=== PATIENT | male | born 1965 | race Caucasian/White ===

== ENCOUNTER 2020-11-07 18:19 | Emergency (ER) | payer MEDICAID ==
--- NOTE | 2020-11-07 19:22 | CR ---
INDICATION: Fall on ice four days prior. Painful left ribs lower anterolateral. LEFT RIBS WITHOUT CHEST: Four views of the left ribs were obtained without chest x-ray. A definite active infiltrate, effusion, contusion or pneumothorax was not visualized. No displaced fracture site or other definite bony abnormality was identified. MTDD
[2020-11-07] MEDS: traMADol 50 MG Tab PO ONE (19:51)
[2020-11-07] MEDS: Acetaminophen 500 MG Tab PO ONE (19:51)
--- NOTE | 2020-11-07 19:56 | EDM.PDOC ---
ED HPI GENERAL MEDICAL PROBLEM - General Chief Complaint: Upper Extremity Injury/Pain Stated Complaint: Left rib pain Time Seen by Provider: 11/07/20 19:30 Source of Information: Reports: Patient History Limitations: Reports: No Limitations - History of Present Illness INITIAL COMMENTS - FREE TEXT/NARRATIVE: Patient presented to the ED because of left rib pain. 4 days ago he was going upstairs, missed a step, fell and landed his left rib on the railing. He c/o 7/10 pain that is worse with movements. L lateral rib Pain Score (Numeric/FACES): 5 - Related Data Allergies Allergy/AdvReac Type Severity Reaction Status Date / Time No Known Allergies Allergy Verified 11/07/20 19:35 Home Meds: Home Meds Cyclobenzaprine [Flexeril] 10 mg PO TID PRN #30 tab 11/07/20 [Rx] Ibuprofen 800 mg PO TID PRN #30 tablet 11/07/20 [Rx] Review of Systems - Review of Systems Review Of Systems: See Below Constitutional: Reports: No Symptoms Ears: Reports: No Symptoms Nose: Reports: No Symptoms Mouth/Throat: Reports: No Symptoms Respiratory: Reports: Pleuritic Chest Pain Cardiovascular: Reports: No Symptoms GI/Abdominal: Reports: No Symptoms Genitourinary: Reports: No Symptoms Musculoskeletal: Reports: No Symptoms Skin: Reports: No Symptoms Neurological: Reports: No Symptoms Psychiatric: Reports: No Symptoms ED EXAM, GENERAL - Physical Exam Exam: See Below Exam Limited By: No Limitations General Appearance: Alert, No Apparent Distress Eye Exam: Bilateral Eye: PERRL Ears: Normal External Exam, Normal Canal, Hearing Grossly Normal Nose: Normal Inspection, Normal Mucosa, No Blood Throat/Mouth: Normal Inspection, Normal Lips, Normal Teeth Head: Atraumatic, Normocephalic Neck: Normal Inspection, Supple, Non-Tender, Full Range of Motion Respiratory/Chest: No Respiratory Distress, Lungs Clear, Normal Breath Sounds, N o Accessory Muscle Use, Other (left rib tenderness) Cardiovascular: Normal Peripheral Pulses, Regular Rate, Rhythm, No Edema, No Gallop, No JVD, No Murmur, No Rub GI/Abdominal: Normal Bowel Sounds, Soft, Non-Tender, No Organomegaly, No Distention, No Abnormal Bruit Back Exam: Normal Inspection, Full Range of Motion Extremities: Normal Inspection, Normal Range of Motion, Non-Tender, No Pedal Edema, Normal Capillary Refill Neurological: Alert, Oriented, CN II-XII Intact, Normal Cognition, Normal Reflexes Psychiatric: Normal Affect Skin Exam: Warm Course - Vital Signs Text/Narrative:: Labs/Rib Xray result was discussed with patient Tramadol 100 mg po x1 Tylenol 1000 mg po x1 - Orders/Labs/Meds Orders: Active Orders 24 hr Category Date Time Status UA W/MICROSCOPIC [URIN] Routine Lab 11/07/20 19:40 Received Labs: Laboratory Tests 11/07/20 11/07/20 Range/Units 19:05 19:05 WBC 8.1 (3.2-10.1) x10-3/uL RBC 4.41 (3.90-5.90) x10(6)uL Hgb 14.5 (12.9-17.7) g/dL Hct 43.0 (38.3-50.1) % MCV 97.4 (80.8-98.7) fL MCH 32.9 (27.0-33.3) pg MCHC 33.8 (28.7-35.3) g/dL RDW 13.2 (12.4-15.0) % Plt Count 318 (117-477) x10(3)uL MPV 7.8 (6.7-11.0) fL Neut % (Auto) 85.6 H (40.3-71.8) % Lymph % (Auto) 8.6 L (15.8-45.3) % [place] % (Auto) 5.3 L (5.5-15.2) % Eos % (Auto) 0.1 (0.1-6.8) % Baso % (Auto) 0.4 (0.3-3.8) % Neut # (Auto) 7.0 H (1.7-6.9) x10-3/uL Lymph # (Auto) 0.7 (0.5-4.5) x10-3/uL [place] # (Auto) 0.4 (0.0-1.2) x10-3/uL Eos # (Auto) 0.0 (0.0-0.6) x10-3/uL Baso # (Auto) 0.0 (0.0-0.3) x10-3/uL Sodium 135 (135-145) mmol/L Potassium 3.9 (3.5-5.3) mmol/L Chloride 97 L (100-110) mmol/L Carbon Dioxide 28 (21-32) mmol/L BUN 12 (7-18) mg/dL Creatinine 0.9 (0.70-1.30) mg/dL Est Cr Clr Drug Dosing TNP Estimated GFR (MDRD) > 60 (>60) BUN/Creatinine Ratio 13.3 (9-20) Glucose 107 (80-116) mg/dL Calcium 8.6 (8.6-10.2) mg/dL Total Bilirubin 0.8 (0.1-1.3) mg/dL AST 33 H (5-25) IU/L ALT 25 (12-36) U/L Alkaline Phosphatase 101 (56-112) IU/L Total Protein 8.1 H (6.0-8.0) g/dL Albumin 4.0 (3.5-5.2) g/dL Globulin 4.1 g/dL Albumin/Globulin Ratio 1.0 Meds: Medications Discontinued Medications Generic Name Dose Route Start Last Admin Trade Name Freq PRN Reason Stop Dose Admin Acetaminophen 1,000 mg 11/07/20 19:47 11/07/20 19:51 Tylenol Extra Strength PO 11/07/20 19:48 1,000 mg ONETIME ONE Administration Tramadol HCl 100 mg 11/07/20 19:46 11/07/20 19:51 Ultram PO 11/07/20 19:47 100 mg ONETIME ONE Administration Departure - Departure Time of Disposition: 18:55 Disposition: Home, Self-Care 01 Condition: Good Clinical Impression: Fall, Contusion of rib on left side - Discharge Information Prescriptions: Cyclobenzaprine [Flexeril] 10 mg PO TID PRN #30 tab PRN Reason: Spasms Ibuprofen 800 mg PO TID PRN #30 tablet PRN Reason: Pain Instructions: Fall Prevention in the Home, Adult, [id number], Rib Contusion Referrals: PCP,None [Primary Care Provider] - Forms: ED Department Discharge Additional Instructions: Please read discharge instructions on rib contusion apply heat take all the following medications at the same time follow up as needed - My Orders Last 24 Hours: My Active Orders 11/07/20 19:40 UA W/MICROSCOPIC [URIN] Routine - Assessment/Plan Last 24 Hours: My Active Orders 11/07/20 19:40 UA W/MICROSCOPIC [URIN] Routine
== END 2020-11-07 20:10 | disposition home or self-care (01) ==
LOC: FB.ED 18:19
DX: S20.212A Contusion of left front wall of thorax, initial encounter (principal); W10.9XXA Fall (on) (from) unspecified stairs and steps, initial encounter
CPT/HCPCS: 36415; 71101-LT; 80053; 81001; 85025; 99283; 99283-25; A9270-GY

== ENCOUNTER 2021-07-09 08:23 | Emergency (ER) | payer MEDICAID ==
[2021-07-09] MEDS ORDERED: Acetaminophen/HYDROcodone 325-10 MG Tab ONE (08:38)
[2021-07-09] MEDS ORDERED: Ketorolac 30 MG/ML SDV ONE (08:38)
[2021-07-09] MEDS ORDERED: Ketorolac 30 MG/ML SDV IM STA (08:41)
[2021-07-09] MEDS ORDERED: Acetaminophen/HYDROcodone 325-10 MG Tab PO ONE (08:41)
--- NOTE | 2021-07-09 08:47 | EDM.PDOC ---
ED HPI GENERAL MEDICAL PROBLEM - General Stated Complaint: TOOTHACHE Time Seen by Provider: 07/09/21 08:30 Source of Information: Reports: Patient History Limitations: Reports: No Limitations - History of Present Illness INITIAL COMMENTS - FREE TEXT/NARRATIVE: Patient presented to the ED because of toothache which started 3 days ago and is now getting worse. The right jaw looks infected: its swollen and tender.He took OTC ibuprofen without significant relief - Related Data Allergies Allergy/AdvReac Type Severity Reaction Status Date / Time No Known Allergies Allergy Verified 11/07/20 19:35 Home Meds: Home Meds Cyclobenzaprine [Flexeril] 10 mg PO TID PRN #30 tab 11/07/20 [Rx] Ibuprofen 800 mg PO TID PRN #30 tablet 11/07/20 [Rx] Amoxicillin/Potassium Clav [Augmentin 875-125 Tablet] 1 each PO BID #20 tablet 07/09/21 [Rx] Ibuprofen 800 mg PO Q8H PRN #30 tablet 07/09/21 [Rx] Past Medical History Musculoskeletal History: Reports: Fracture Other Musculoskeletal History: hx fx R femur, R wrist, toes, skull fx, Neurological History: Reports: Brain Injury, Head Trauma Psychiatric History: Reports: Addiction Other Psychiatric History: hx ETOH abuse, has been in tx for same - Past Surgical History Head Surgeries/Procedures: Reports: None Social & Family History - Family History Family Medical History: No Pertinent Family History - Caffeine Use Caffeine Use: Reports: Coffee, Soda ED ROS ENT - Review of Systems Review Of Systems: See Below HEENT: Reports: Dental Pain Respiratory: Reports: No Symptoms Cardiovascular: Reports: No Symptoms Endocrine: Reports: No Symptoms GI/Abdominal: Reports: No Symptoms : Reports: No Symptoms Musculoskeletal: Reports: No Symptoms Skin: Reports: No Symptoms Neurological: Reports: No Symptoms Psychiatric: Reports: No Symptoms ED EXAM, ENT - Physical Exam Exam: See Below Exam Limited By: No Limitations General Appearance: Alert, No Apparent Distress Eye Exam: Bilateral Eye: PERRL Ears: Normal External Exam Nose: Normal Inspection, Normal Mucousa, No Blood Mouth/Throat: Normal Inspection, Other (gingivaaal swelling Rt lower jose alfredo) Head: Atraumatic Neck: Normal Inspection Respiratory/Chest: No Respiratory Distress, Lungs Clear, Normal Breath Sounds Cardiovascular: Normal Peripheral Pulses, Regular Rate, Rhythm, No Edema, No Gallop, No JVD, No Murmur, No Rub GI/Abdominal: Normal Bowel Sounds, Soft, Non-Tender, No Organomegaly, No Distention, No Abnormal Bruit Back: Normal Inspection, Full Range of Motion Extremities: Normal Inspection, Normal Range of Motion, Non-Tender, No Pedal Edema, Normal Capillary Refill Neurological: Alert, Oriented, CN II-XII Intact, Normal Cognition, Normal Gait, Normal Reflexes, No Motor/Sensory Deficits Psychiatric: Normal Affect, Normal Mood Skin: Warm, Intact, Normal Color, No Rash Course - Vital Signs Text/Narrative:: [place] 10 mg PO x1 Toradol 60 mg IM x1 Last Recorded V/S: Last Vital Signs Temp 36.3 C 07/09/21 08:28 Pulse 91 07/09/21 08:28 Resp 18 07/09/21 08:28 BP 165/108 H 07/09/21 08:28 Pulse Ox 99 07/09/21 08:28 - Orders/Labs/Meds Meds: Medications Discontinued Medications Generic Name Dose Route Start Last Admin Trade Name Theresa PRN Reason Stop Dose Admin Hydrocodone Bitart/Acetaminophen Confirm 07/09/21 08:38 07/09/21 08:41 Acetaminophen/Hydrocodone 325-10 Mg Tab Administered 07/09/21 08:39 Not Given Dose 1 tab .ROUTE .STK-MED ONE Hydrocodone Bitart/Acetaminophen 1 tab 07/09/21 08:41 Acetaminophen/Hydrocodone 325-10 Mg Tab PO 07/09/21 08:42 ONETIME ONE Ketorolac Tromethamine Confirm 07/09/21 08:38 07/09/21 08:41 Ketorolac 30 Mg/Ml Sdv Administered 07/09/21 08:39 Not Given Dose 60 mg .ROUTE .STK-MED ONE Ketorolac Tromethamine 60 mg 07/09/21 08:41 Ketorolac 30 Mg/Ml Sdv IM 07/09/21 08:42 NOW STA Departure - Departure Time of Disposition: 09:00 Disposition: Home, Self-Care 01 Condition: Good Clinical Impression: Pain, dental, Dental infection - Discharge Information Prescriptions: Amoxicillin/Potassium Clav [Augmentin 875-125 Tablet] 1 each PO BID #20 tablet Ibuprofen 800 mg PO Q8H PRN #30 tablet PRN Reason: Pain Instructions: Gingivitis, [id number], Dental Pain, [id number] Forms: ED Department Discharge Additional Instructions: Please read discharge instructions on dental pain and infection Gurgle with salt and water Take ibuprofen 800 mg with tylenol 1000 mg every 8 hours as needed for pain. take them both at the same time for better pain relief Follow up with your dentist this week Sepsis Event Note (ED) - Focused Exam Vital Signs: Vital Signs Temp Pulse Resp BP Pulse Ox 07/09/21 08:28 36.3 C 91 18 165/108 H 99
== END 2021-07-09 09:05 | disposition home or self-care (01) ==
LOC: FB.ED 08:23
DX: K04.7 Periapical abscess without sinus (principal)
CPT/HCPCS: 96372; 99282; A9270; J1885

== ENCOUNTER 2021-11-30 18:06 | Emergency (ER) | payer MEDICAID ==
[2021-11-30] MEDS ORDERED: Amoxicillin/Clavulanate K 875-125 MG Tab PO STA (18:33)
[2021-11-30] MEDS ORDERED: traMADol 50 MG Tab PO STA (18:33)
[2021-11-30] MEDS ORDERED: Acetaminophen 500 MG Tab PO STA (18:33)
== END 2021-11-30 18:45 | disposition home or self-care (01) ==
LOC: FB.ED 18:06
DX: K05.10 Chronic gingivitis, plaque induced (principal); Z91.030 Bee allergy status
CPT/HCPCS: 99282; 99283; A9270-GY

== ENCOUNTER 2022-09-16 07:09 | Emergency (ER) | payer OTHER, MEDICAID ==
[2022-09-16] MEDS ORDERED: Acetaminophen/HYDROcodone 325-5 MG Tab PO ONE (07:10)
[2022-09-16] MEDS ORDERED: Cyclobenzaprine 10 MG Tab PO ONE ×2 (07:10→07:39)
[2022-09-16] MEDS ORDERED: Ondansetron 4 MG/2 ML SDV IVPUSH ONE (07:38)
[2022-09-16] MEDS ORDERED: Sodium Chloride 0.9% 1,000 ML IV ONE (07:38)
[2022-09-16] MEDS ORDERED: Morphine 4 MG/ML VIAL IVPUSH ONE (07:38)
[2022-09-16 08:01] LABS: ESTIMATED GFR 114 mL/min (>60)
[2022-09-16] MEDS ORDERED: Ketorolac 30 MG/ML SDV IVPUSH ONE (08:36)
[2022-09-16] MEDS ORDERED: Sodium Chloride 0.9% 10 ML Syringe FLUSH PRN (13:54)
== END 2022-09-16 09:40 | disposition home or self-care (01) ==
LOC: FB.ED 07:09
DX: M54.16 Radiculopathy, lumbar region (principal); M54.12 Radiculopathy, cervical region; M54.6 Pain in thoracic spine; M62.830 Muscle spasm of back; M54.2 Cervicalgia; F10.129 Alcohol abuse with intoxication, unspecified; F17.210 Nicotine dependence, cigarettes, uncomplicated; Z91.030 Bee allergy status
CPT/HCPCS: 71250; 72125; 74176; 80053; 80307; 85025; 96361; 96374; 96375; 99284-25; A9270-GY; J1885; J2270; J2405; J3490; J7030

== ENCOUNTER 2023-04-03 23:03 | Emergency (ER) | payer MEDICAID, OTHER ==
[2023-04-03 23:27] LABS: BASOPHILS ABSOLUTE AUTO 0.1 x10-3/uL (0.0-0.3); BASOPHILS PERCENT AUTO 1.1 % (0.3-3.8); EOSINOPHILS ABSOLUTE AUTO 0.3 x10-3/uL (0.0-0.6); EOSINOPHILS PERCENT AUTO 3.8 % (0.1-6.8); HEMOGLOBIN 14.7 g/dL (12.9-17.7); LYMPHOCYTES ABSOLUTE AUTO 2.6 x10-3/uL (0.5-4.5); LYMPHOCYTES PERCENT AUTO 35.9 % (15.8-45.3); MEAN CORPUSCULAR HEMOGLOBIN 34.2 pg (27.0-33.3); MEAN CORPUSCULAR VOLUME 97.7 fL (80.8-98.7); MEAN PLATELET VOLUME 7.2 fL (6.7-11.0); MONOCYTES ABSOLUTE AUTO 0.7 x10-3/uL (0.0-1.2); MONOCYTES PERCENT AUTO 9.6 % (5.5-15.2); NEUTROPHILS ABSOLUTE AUTO 3.6 x10-3/uL (1.7-6.9); NEUTROPHILS PERCENT AUTO 49.6 % (40.3-71.8); PLATELET COUNT,PLT 252 x10(3)uL (117-477); RED CELL DISTRIBUTION WIDTH 15.3 % (12.4-15.0); WHITE BLOOD CELL COUNT,WBC 7.2 x10-3/uL (3.2-10.1)
[2023-04-03 23:30] LABS: BLOOD UREA NITROGEN,BUN 9 mg/dL (7-18); CALCIUM 7.9 mg/dL (8.6-10.2); CARBON DIOXIDE,CO2 28 mmol/L (21-32); CHLORIDE,CL 104 mmol/L (100-110); CREATININE 0.6 mg/dL (0.70-1.30); ESTIMATED GFR 114 mL/min (>60); GLUCOSE RANDOM 114 mg/dL (80-116); POTASSIUM,K 3.4 mmol/L (3.5-5.3); SODIUM,NA 143 mmol/L (135-145)
[2023-04-03 23:36] LABS: A/G RATIO 0.8; ALANINE AMINOTRANSFERASE,ALT 44 U/L (12-36); ALBUMIN 3.6 g/dL (3.5-5.2); ALKALINE PHOSPHATASE 152 IU/L (56-112); ASPARTATE AMNIOTRANSFERASE,AST 75 IU/L (5-25); BILIRUBIN TOTAL 0.2 mg/dL (0.1-1.3); PROTEIN TOTAL,TP 7.9 g/dL (6.0-8.0)
[2023-04-03 23:39] LABS: BASE EXCESS VENOUS,POC 3 mmol/L (-2 - 3+); PCO2 VENOUS,POC 31 mmHg (41-51); PH VENOUS,POC 7.51 pH Units (7.32-7.43)
[2023-04-03 23:41] LABS: LIPASE 111 U/L (16-77); TROPONIN I 5.1 pg/mL (4.0-60.3)
[2023-04-03 23:42] LABS: C-REACTIVE PROTEIN < 0.05 mg/dL (<0.33)
[2023-04-03 23:43] LABS: ETHANOL BLOOD MEDICAL 0.38 % (<0.03)
[2023-04-03 23:55] LABS: BILIRUBIN,URINE NEGATIVE (NEGATIVE); GLUCOSE,URINE NORMAL (NORMAL); KETONES,URINE NEGATIVE (NEGATIVE); LEUKOCYTE ESTERASE,URINE NEGATIVE (NEGATIVE); NITRITE,URINE NEGATIVE (NEGATIVE); OCCULT BLOOD,URINE NEGATIVE (NEGATIVE); PH,URINE 6.5 (5.0-6.5); PROTEIN,URINE NEGATIVE (NEGATIVE); UROBILINOGEN,URINE NORMAL (NEGATIVE)
[2023-04-03 23:59] LABS: APPEARANCE,URINE CLEAR (CLEAR); BACTERIA,URINE OCCASIONAL (NS); COLOR,URINE YELLOW (YELLOW); RBC,URINE 0-5 (0-5); SQUAMOUS EPITHELIAL CELLS,UR OCCASIONAL (NS,R,O); WBC,URINE 0-5 (0-5)
== END 2023-04-03 23:50 | disposition left against medical advice (07) ==
LOC: FB.ED 23:03
DX: F10.129 Alcohol abuse with intoxication, unspecified (principal); R74.8 Abnormal levels of other serum enzymes; R60.0 Localized edema; E87.6 Hypokalemia; Z91.030 Bee allergy status
CPT/HCPCS: 36415; 80053; 80307; 81001; 83690; 83880; 84484; 85025; 86140; 99285

== ENCOUNTER 2024-11-25 06:53 | Day surgery (SDC) | payer MEDICAID ==
[2024-11-25] MEDS ORDERED: Propofol 200 MG/20 ML SDV IV ONE (06:54)
[2024-11-25] MEDS ORDERED: Midazolam 1 MG/ML 2 ML SDV IV ONE (06:54)
[2024-11-25] MEDS ORDERED: Lidocaine 2% 100 MG/5 ML Syringe IVPUSH ONE (06:54)
[2024-11-25] MEDS ORDERED: Sodium Chloride 0.9% 10 ML Syringe FLUSH PRN (07:00)
[2024-11-25] MEDS: Lactated Ringers 1,000 ML IV SCH (07:46)
[2024-11-25] MEDS: Simethicone Drops 40 MG/0.6 ML 30 ML Bottle ONE (08:52)
== END 2024-11-25 10:27 | disposition home or self-care (01) ==
LOC: FB.SDS 06:53
PROVIDERS: ATTEND Surgery
DX: Z12.11 Encounter for screening for malignant neoplasm of colon (principal); D12.8 Benign neoplasm of rectum; K57.30 Diverticulosis of large intestine without perforation or abscess without bleeding; K42.9 Umbilical hernia without obstruction or gangrene; K43.9 Ventral hernia without obstruction or gangrene; F41.9 Anxiety disorder, unspecified; Z79.899 Other long term (current) drug therapy; Z91.030 Bee allergy status; F17.210 Nicotine dependence, cigarettes, uncomplicated
CPT/HCPCS: 00811; 88305; A9270-GY; J2250; J2704; J7120